=== PATIENT | female | born 1990 | race Caucasian/White ===

== ENCOUNTER 2024-07-20 09:01 | Emergency (ER) | payer OTHER, SELFPAY ==
[2024-07-20 09:08] VITALS: BP 156/77; PULSE 58; TEMP 36.5; O2SAT 100; BMI 20.7
--- NOTE | 2024-07-20 09:28 | ED_ITS ---
HPI - Nausea/Vomiting/Diarrhea General Chief complaint: Nausea/Vomiting/Diarrhea Stated complaint: NAUSEA/VOMITTING/ FEVER Time Seen by Provider: 07/20/24 09:14 Source: patient Mode of arrival: Wheelchair Limitations: no limitations History of Present Illness HPI Narrative: This patient is here complaining of protracted vomiting nausea. She does not have diarrhea. She has not been sick recently she just suddenly woke up at 3:00 AM started vomiting. Her male armor reconnaissance specialist says that this is a very frequent occurrence for her. He is really never had any problems with her pancreas stomach ulcers or gallbladder that she is aware of. She smokes marijuana on a daily basis. She has not had any urinary problems such as frequency urgency dysuria or hematuria. She has no back or flank pain. Just intense intractable vomiting. She has not taken any medication for it. Per male armor reconnaissance specialist states that she used Imodium and used it aggressively for many years that that might be affecting her bowel disorder I did obtain records from the other facility and her laboratory testing was essentially normal they did discuss cyclic vomiting. Related Data Allergies Allergy/AdvReac Type Severity Reaction Status Date / Time antipsychotics Allergy Severe Palpitation Uncoded 07/20/24 09:17 s PFSH PFS Social History Little interest or pleasure in doing things: not at all Feeling down, depressed, or hopeless: not at all Exam Narrative Exam Narrative: Patient appears miserable nausea dry heaving. The other facility noted this and our nursing staff also noticed that she was putting her finger in her throat inducing vomitus. She is then pale but she is not tachycardic or hypotensive. There is no abdominal distention no peritoneal findings no guarding or rebound or rigidity. No obvious herniation of the abdominal wall. Her mucous membranes are moist and pink with no evidence of pallor or anemia there is no scleral icterus. At this juncture I will also comment that she says she has been tested repeatedly for hepatitis and it has been negative. Extremities are atraumatic and she has no symptoms. Constitutional Vital Signs, click to edit/add: Last Vital Signs Temp 97.7 F 07/20/24 09:08 Pulse 52 L 07/20/24 10:33 Resp 20 07/20/24 10:33 BP 143/81 H 07/20/24 10:33 Pulse Ox 100 07/20/24 10:33 O2 Del Method Room Air 07/20/24 10:33 Course Vital Signs Vital signs: Vital Signs Temperature 97.7 F 07/20/24 09:08 Pulse Rate 58 L 07/20/24 09:08 Respiratory Rate 20 07/20/24 09:08 Blood Pressure 156/77 H 07/20/24 09:08 Pulse Oximetry 100 07/20/24 09:08 Oxygen Delivery Method Room Air 07/20/24 09:08 Temperature 97.7 F 07/20/24 09:08 Pulse Rate 52 L 07/20/24 10:33 Respiratory Rate 20 07/20/24 10:33 Blood Pressure 143/81 H 07/20/24 10:33 Pulse Oximetry 100 07/20/24 10:33 Oxygen Delivery Method Room Air 07/20/24 10:33 MDM - Nausea/Vomiting/Diarrhea MDM Narrative Medical decision making narrative: This patient presents with repetitive events of isolated vomiting. Admits to daily use of marijuana. 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 Vital signs are stable she has no fever she has no blood in the vomitus she has no diarrheal symptoms. She was treated repeatedly with antiemetics fluids IV sedation including Benadryl with no benefit. She cannot use Haldol because of severe reaction. She is requesting tramadol. Other workup here included CT of the abdomen of IV contrast and ultrasound. There was radiologist interpretation that there may be hepatitis. This despite the fact that her liver function tests are normal. She says she has been tested repeatedly for chronic hepatitis since been negative. She is not immune compromised. I strongly advise follow-up with a GI specialist but quite frankly the most important thing she can do to benefit herself would be an extended trial of abstaining for any type of marijuana products. Lab Data Labs: Lab Results 07/20/24 Range/Units 09:41 WBC 14.4 H (4.0-11.0) 10^3/uL RBC 3.97 L (4.20-5.40) 10^6/uL Hgb 12.7 (12.0-16.0) g/dL Hct 36.5 (36.0-48.0) % MCV 91.9 (81.0-99.0) fL MCH 32.0 (26.7-34.0) pg MCHC 34.8 (29.9-35.2) g/dL RDW 12.6 (11.0-15.0) % Plt Count 212 (150-450) 10^3/uL MPV 10.4 (9.5-13.5) fL Neut % (Auto) 79.9 H (43.0-75.0) % Lymph % (Auto) 11.9 L (20.5-60.0) % [place] % (Auto) 7.3 (1.7-12.0) % Eos % (Auto) 0.3 L (0.9-7.0) % Baso % (Auto) 0.3 (0.2-2.0) % Neut # (Auto) 11.5 H (1.4-6.5) 10^3/uL Lymph # (Auto) 1.7 (1.2-3.8) 10^3/uL [place] # (Auto) 1.1 H (0.3-0.8) 10^3/uL Eos # (Auto) 0.1 (0.0-0.7) 10^3/uL Baso # (Auto) 0.1 (0.0-0.1) 10^3/uL Abs Immat Gran (auto) 0.05 H (0.00-0.03) 10^3/uL Imm/Tot Granulo (auto) 0.3 (0.0-0.5) % Sodium 142 (136-145) mmol/L Potassium 3.1 L (3.5-5.1) mmol/L Chloride 103 (98-107) mmol/L Carbon Dioxide 22.8 (21.0-32.0) mmol/L Anion Gap 19.3 BUN 10.0 (7.0-18.0) mg/dL Creatinine 1.03 H (0.55-1.02) mg/dL Est GFR ( Amer) >60 (>=60 mL/min/1.73m^2) Est GFR (Non-Af Amer) >60 (>=60 mL/min/1.73m^2) BUN/Creatinine Ratio 9.7 Glucose 143 H (74-106) mg/dL Calcium 9.3 (8.5-10.1) mg/dL Total Bilirubin 0.9 (0.2-1.0) mg/dL AST 28 (15-37) U/L ALT 19 (14-59) U/L Alkaline Phosphatase 56 (46-116) U/L Total Protein 6.8 (6.4-8.2) g/dL Albumin 3.8 (3.4-5.0) g/dL Globulin 3.0 g/dL Albumin/Globulin Ratio 1.3 Lipase 15.0 L (16.0-77.0) U/L Discharge Plan Discharge Chief Complaint: Nausea/Vomiting/Diarrhea Clinical Impression: Cyclical vomiting Patient Disposition: Home, Self-Care Time of Disposition Decision: 14:44 Print Language: Azeri Additional Instructions: Follow-up with GI doctor for further medication and treatment evaluation as discussed. Take a copy of your lab test and imaging studies. Referrals: Physician,Non-Staff, MD [Primary Care Provider] - 1 week
--- NOTE | 2024-07-20 09:29 | XR_ITS ---
The [address] [address] Patient Name: JANNA KAY MRN: [id number] date: 1990 Sex: F Assigned Patient Location: ER Current Patient Location: ER Accession/Order Number: [id number] Exam Date: 07/20/2024 09:57 Report Date: 07/20/2024 10:21 At the request of: ROSSY CASTILLO Procedure: XR abdomen min 2V EXAMINATION: XR abdomen min 2V HISTORY: Vomiting COMPARISON: No relevant comparison available. FINDINGS: BOWEL GAS PATTERN: No abnormal dilation or deviation. CALCIFICATIONS: None significant. OTHER: IUD. No abnormal gaseous collections. XR/XR abdomen min 2V IMPRESSION: Nonobstructive bowel gas pattern Electronically authenticated by: HANG SKINNER Date: 07/20/2024 10:21
[2024-07-20] MEDS: ONDANSETRON PF 4 MG/2 ML VIAL IV (09:39)
[2024-07-20] MEDS: 0.9 % SODIUM CHLORIDE 1,000 ML 999 ML IV (09:39)
[2024-07-20 09:49] LABS: Basophils Absolute Auto 0.1 10^3/uL (0.0-0.1); Basophils Percent Auto 0.3 % (0.2-2.0); Eosinophils Absolute Auto 0.1 10^3/uL (0.0-0.7); Eosinophils Percent Auto 0.3 % (0.9-7.0); Hematocrit 36.5 % (36.0-48.0); Hemoglobin 12.7 g/dL (12.0-16.0); Immature Granulocytes Abs Auto 0.05 10^3/uL (0.00-0.03); Immature Granulocytes Pct Auto 0.3 % (0.0-0.5); Lymphocytes Absolute Auto 1.7 10^3/uL (1.2-3.8); Lymphocytes Percent Auto 11.9 % (20.5-60.0); Mean Corpuscular HGB Conc 34.8 g/dL (29.9-35.2); Mean Corpuscular Volume 91.9 fL (81.0-99.0); Mean Platelet Volume 10.4 fL (9.5-13.5); Monocytes Absolute Auto 1.1 10^3/uL (0.3-0.8); Monocytes Percent Auto 7.3 % (1.7-12.0); Neutrophils Absolute Auto 11.5 10^3/uL (1.4-6.5); Neutrophils Percent Auto 79.9 % (43.0-75.0); Platelet Count 212 10^3/uL (150-450); Red Blood Count 3.97 10^6/uL (4.20-5.40); Red Cell Distribution Width 12.6 % (11.0-15.0); White Blood Count 14.4 10^3/uL (4.0-11.0)
[2024-07-20 10:05] LABS: Alanine Aminotransferase 19 U/L (14-59); Albumin Globulin Ratio 1.3; Albumin Level 3.8 g/dL (3.4-5.0); Alkaline Phosphatase 56 U/L (46-116); Anion Gap 19.3; Aspartate Amino Transferase 28 U/L (15-37); BUN Creatinine Ratio 9.7; Bilirubin Total 0.9 mg/dL (0.2-1.0); Calcium 9.3 mg/dL (8.5-10.1); Carbon Dioxide 22.8 mmol/L (21.0-32.0); Chloride 103 mmol/L (98-107); Estimated GFR (African America >60 (>=60 mL/min/1.73m^2); Estimated GFR (Non-African Ame >60 (>=60 mL/min/1.73m^2); Glucose 143 mg/dL (74-106); Potassium 3.1 mmol/L (3.5-5.1); Sodium 142 mmol/L (136-145); Total Protein 6.8 g/dL (6.4-8.2)
[2024-07-20] MEDS: PROMETHAZINE HCL 12.5 MG in 0.9 % SODIUM CHLORIDE 50 ML 202 MG IV ×2 (10:05→12:14)
[2024-07-20 10:33] VITALS: BP 143/81; PULSE 52; O2SAT 100
[2024-07-20] MEDS: diphenhydrAMINE HCL 25 MG in 0.9 % SODIUM CHLORIDE 100 ML 301.5 MG IV (11:35)
--- NOTE | 2024-07-20 12:07 | CT_ITS ---
[address] [address] Patient Name: JANNA KAY MRN: [id number] date: 1990 Sex: F Assigned Patient Location: ER Current Patient Location: ER Accession/Order Number: [id number] Exam Date: 07/20/2024 12:28 Report Date: 07/20/2024 13:11 At the request of: ROSSY CASTILLO Procedure: CT abdomen pelvis w con EXAMINATION: CT abdomen pelvis w con HISTORY: Persisting and recurrent abdominal pain COMPARISON: No relevant comparison available. TECHNIQUE: CT images were created with IV contrast. Axial, Coronal, and Sagittal images. Dose reduction techniques were achieved by using automated exposure control and/or adjustment of mA and/or kV according to patient size and/or use of iterative reconstruction technique. FINDINGS: LUNG BASES: No visible pulmonary or pleural disease. LIVER: No enlargement, atrophy, abnormal density, or significant focal lesion. BILIARY: No visible dilatation or calcification. Periportal edema and pericholecystic fluid PANCREAS: No lesion, fluid collection, ductal dilatation, or atrophy. SPLEEN: No enlargement or focal lesion. ADRENALS: No mass or enlargement. KIDNEYS: No mass, obstruction, or calcification. BOWEL/MESENTERY: No visible mass, obstruction, or bowel wall thickening. Some perceived thickening of the gastric antrum likely related to nondistention AORTA/VASCULAR: No aneurysm or dissection. RETROPERITONEUM: No mass or adenopathy. LYMPH NODES: No adenopathy. URINARY BLADDER: No visible focal wall thickening, lesion, or calculus. PELVIC ORGANS: No visible mass. Pelvic organs appropriate for patient age. IUD. 2.1 cm right adnexal cyst ABDOMINAL WALL: No mass or hernia. Several areas of subcutaneous fat stranding could be related to injections BONES: No bony lesion or fracture. OTHER: Negative. CT/CT abdomen pelvis w con IMPRESSION: Periportal edema and small amount of pericholecystic fluid of unknown etiology. Consider viral hepatitis Electronically authenticated by: HANG SKINNER Date: 07/20/2024 13:11
[2024-07-20 12:48] VITALS: BP 133/75; PULSE 64; O2SAT 100
--- NOTE | 2024-07-20 13:28 | US_ITS ---
The [address] [address] Patient Name: JANNA KAY MRN: [id number] date: 1990 Sex: F Assigned Patient Location: ER Current Patient Location: ER Accession/Order Number: [id number] Exam Date: 07/20/2024 13:30 Report Date: 07/20/2024 14:10 At the request of: ROSSY CASTILLO Procedure: US right upper quadrant EXAM: US right upper quadrant HISTORY: Abnormal CT findings/protracted vomiting COMPARISON: CT same day. TECHNIQUE: Grayscale, color and Doppler FINDINGS: The liver appears normal in size and contour. There is a echogenic appearance of the liver with a centrilobular pattern. No focal mass. Hepatopedal flow identified may portal vein with velocity of 30 cm/s The gallbladder is normal in size. The gallbladder wall is poorly defined measuring 3 mm. Negative sonographic Blakely sign. Common bile duct measures 6.9 mm. The visualized pancreas is normal The right kidney is normal measuring 11.3 x 4.8 x 4.7 cm US/US right upper quadrant IMPRESSION: Centrilobular echogenic appearance of the liver. This is nonspecific but congruent with the CT findings and suggestive of hepatitis Electronically authenticated by: HANG SKINNER Date: 07/20/2024 14:10
[2024-07-20 14:22] VITALS: BP 141/80; PULSE 60; O2SAT 100
[2024-07-20] MEDS: TRAMADOL HCL 50 MG TABLET PO (14:44)
== END 2024-07-20 14:59 | disposition home or self-care (01) ==
PROVIDERS: Emergency Provider Emergency Medicine Emergency Medical Services
DX: R11.15 Cyclical vomiting syndrome unrelated to migraine (principal)
CPT/HCPCS: 36415; 74019; 74177; 76705; 80053; 83690; 85025; 96361; 96365; 96366; 96367; 96375; 99285; J1200; J2250; J2405; Q9967